=== PATIENT | male | born 1960 | race Caucasian/White ===

== ENCOUNTER → 2018-01-09 | Outpatient (CLI) | payer OTHER ==
--- NOTE | 2018-01-09 07:59 | DIAGNOSTIC IMAGING REPORT ---
BILIARY ULTRASOUND CLINICAL HISTORY: Epigastric pain. Diarrhea. COMPARISON STUDY: No previous studies for comparison. FINDINGS: The pancreas appears normal as visualized. The gallbladder appears sonographically normal. There is no ductal dilatation. The common bile duct measures 4 mm. There is no right-sided hydronephrosis. There is slight increase in hepatic echogenicity. This is a nonspecific finding most often seen in hepatic steatosis. There is a 23 mm hypoechoic lesion with thin the right lobe of the liver. An MRI of the liver is recommended for further characterization. IMPRESSION: 1. Ultrasonographically normal gallbladder and pancreas 2. No ductal dilatation 3. Suspected hepatic steatosis 4. Indeterminate 23 mm hypoechoic lesion within the right lobe of the liver. An MRI the liver is recommended in follow-up for further characterization Electronically signed by: Markell Adler M.D. 01/09/2018 7:58 AM Dictated Date/Time: 01/09/2018 7:54 AM
== END | disposition home or self-care (01) ==
LOC: C.ULTR 07:18
PROVIDERS: ATTEND Family Medicine
DX: R12 Heartburn (principal); R19.7 Diarrhea, unspecified; K76.9 Liver disease, unspecified

== ENCOUNTER → 2018-01-14 | Outpatient (CLI) | payer OTHER ==
[~2018-01-14] MED LIST: GADOXETATE DISODIUM (NON-WT BASED PROCEDURE) IV PRN
--- NOTE | 2018-01-14 18:54 | DIAGNOSTIC IMAGING REPORT ---
ORBITS FOR MRI HISTORY: Pre-MRI pre-MRI screening. COMPARISON: None. FINDINGS: There are no radiopaque foreign bodies identified within the orbits. IMPRESSION: No radiopaque foreign bodies identified within the orbits. The above report was generated using voice recognition software. It may contain grammatical, syntax or spelling errors. Electronically signed by: Ronald Eubanks M.D. 01/14/2018 6:51 PM Dictated Date/Time: 01/14/2018 6:51 PM
--- NOTE | 2018-01-15 07:38 | DIAGNOSTIC IMAGING REPORT ---
LIVER MRI WITH AND WITHOUT INTRAVENOUS CONTRAST HISTORY: Abnormal ultrasound. Liver lesion. TECHNIQUE: Multiplanar multisequence MRI of the liver was performed both before and after the intravenous administration of 10 cc of Eovist contrast. COMPARISON STUDY: Abdominal ultrasound 01/09/2018. FINDINGS: Hepatic steatosis. 2 cm geographic area of focal fatty sparing within the central aspect of the liver adjacent to the dary hepatis. This corresponds to the abnormality on the recent ultrasound. No hepatic masses. The spleen, pancreas, kidneys, and adrenal glands are unremarkable. Normal gallbladder. The lung bases are clear. No areas restricted diffusion within the liver. Normal caliber common bile duct. IMPRESSION: A 2 cm geographic area of focal fatty sparing within the central aspect of the liver adjacent to the dary hepatis. This corresponds to the abnormality on the recent ultrasound. No hepatic masses. Electronically signed by: Jesse Moses M.D. 01/15/2018 7:37 AM Dictated Date/Time: 01/15/2018 7:13 AM
== END | disposition home or self-care (01) ==
LOC: C.MRI 18:06
PROVIDERS: ATTEND Family Medicine
DX: K76.0 Fatty (change of) liver, not elsewhere classified (principal); R93.5 Abnormal findings on diagnostic imaging of other abdominal regions, including retroperitoneum